=== PATIENT | female | born 1995 | race Caucasian/White ===

== ENCOUNTER 2017-08-08 19:15 | Emergency (ER) | payer BC ==
[2017-08-08 19:53] VITALS: BP 135/79
[2017-08-08] MEDS ORDERED: Amoxicillin PO (*) 500 MG CAP PO ONE (20:12)
[2017-08-08] MEDS ORDERED: LoraTADine TAB(NF) 10 MG TAB (AUTOSUB to CETIRIZINE) PO ONE (20:12)
--- NOTE | 2017-08-08 20:13 | UC ---
Throat Pain/Nasal Daniel HPI - HPI Summary HPI Summary: Pt presents with c/o sinus congestion , pressure and swelling X 1 week. right side worse than left. Pt reports having a fever at onset of congestion but has since resolved. - History of Current Complaint Chief Complaint: UCRespiratory Stated Complaint: SINUS Time Seen by Provider: 08/08/17 20:04 Hx Obtained From: Patient Hx Last Menstrual Period: 07/25/17 ?: No Onset/Duration: Gradual Onset, Lasting Weeks - 1, Still Present, Worse Since - onset Severity: Moderate Associated Signs & Symptoms: Positive: Sinus Discomfort - Epiglottits Risk Factors Epiglottis Risk Factors: Negative - Allergies/Home Medications Allergies/Adverse Reactions: Allergies Allergy/AdvReac Type Severity Reaction Status Date / Time No Known Allergies Allergy Verified 08/08/17 19:53 Home Medications: Home Medications Norgestrel & Ethinyl Estradiol [Cryselle-28 0.3-30 mg-Mcg] 1 tab PO DAILY [History Confirmed 08/08/17] PMH/Surg Hx/FS Hx/Imm Hx Previously Healthy: Yes - Surgical History Surgical History: Yes Surgery Procedure, Year, and Place: T&A - Family History Known Family History: Positive: Cardiac Disease - Social History Occupation: Student Lives: With Family Alcohol Use: Rare Substance Use Type: Other Substance Use Comment - Amount & Last Used: VEEP Smoking Status (MU): Never Smoked Tobacco Type: eCigarettes Have You Smoked in the Last Year: No Review of Systems Constitutional: Fever, Fatigue Skin: Negative Eyes: Negative ENT: Sinus Congestion, Sinus Pain/Tenderness Respiratory: Negative Cardiovascular: Negative Gastrointestinal: Negative Genitourinary: Negative Motor: Negative Neurovascular: Negative Musculoskeletal: Negative Neurological: Headache Psychological: Negative Is Patient Immunocompromised?: No All Other Systems Reviewed And Are Negative: Yes Physical Exam Triage Information Reviewed: Yes Appearance: Ill-Appearing Vital Signs: Initial Vital Signs Temp 98.2 F 08/08/17 19:48 Pulse 77 08/08/17 19:48 Resp 16 08/08/17 19:48 BP 135/79 08/08/17 19:48 Pulse Ox 100 08/08/17 19:48 Vital Signs Reviewed: Yes Eye Exam: Normal ENT: Positive: Nasal congestion, TM bulging - bialteral Dental Exam: Other Dental: Positive: Other: - maxillary sinus tenderness Neck exam: Normal Respiratory Exam: Normal Cardiovascular Exam: Normal Musculoskeletal Exam: Normal Neurological Exam: Normal Psychological Exam: Normal Skin Exam: Normal Throat Pain/Nasal Course/Dx - Differential Dx/Diagnosis Differential Diagnosis/HQI/PQRI: Sinusitis, URI Provider Diagnoses: sinusitis. seasonal allergies Discharge - Discharge Plan Condition: Stable Disposition: HOME Prescriptions: Amoxicillin PO (*) [Amoxicillin 875 MG (*)] 875 mg PO Q12H #20 tab Loratadine & Pseudoephedrine [Loratadine/Pseudoephedrin 10-240 mg] 1 tab PO DAILY #14 tab Patient Education Materials: Sinusitis (ED), Allergies (ED) Referrals: No Primary Care Phys,NOPCP [Primary Care Provider] - If Needed Additional Instructions: Please follow up with your PCP or return to clinic as needed.
== END 2017-08-08 20:22 | disposition home or self-care (01) ==
LOC: UCCORT 19:15
DX: S51.811A Laceration without foreign body of right forearm, initial encounter (principal); W45.8XXA Other foreign body or object entering through skin, initial encounter; Y93.89 Activity, other specified; Y92.9 Unspecified place or not applicable; Z90.49 Acquired absence of other specified parts of digestive tract
CPT/HCPCS: 99202; A9270-GY; G0463